=== PATIENT | female | born 1980 | race Caucasian/White ===

== ENCOUNTER 2020-06-21 08:44 | Outpatient (REF) | payer OTHER, SELFPAY | END 2020-06-21 08:45 | disposition home or self-care (01) | LOC: HO.RADIR 08:44 | PROVIDERS: Visit Provider Anesthesiology | DX: Z13.89 Encounter for screening for other disorder (principal) ==

== ENCOUNTER 2020-07-19 05:11 | Outpatient (REF) | payer OTHER, SELFPAY | END 2020-07-19 05:12 | disposition home or self-care (01) | LOC: HO.RADIR 05:11 | PROVIDERS: Visit Provider Anesthesiology | DX: Z13.89 Encounter for screening for other disorder (principal) ==